=== PATIENT | female | born 1990 | race Caucasian/White ===

== ENCOUNTER 2020-09-08 11:59 | Emergency (ER) | payer OTHER ==
[~2020-09-08] VITALS: Ht 175.3 cm; Wt 29.5 kg
--- NOTE | 2020-09-08 12:10 | NUR ---
Patient came in to the er c/o r wrist and left knee pain s/p falling off her skateboard yesterday. On room air, breathing evenly and unlabored. Kept comfortable, will continue to monitor accordingly.
[2020-09-08] MEDS ORDERED: ACET-2605 PO (13:12)
[2020-09-08 14:13] VITALS: BP 122/66
--- NOTE | 2020-09-08 14:13 | NUR ---
Patient discharged to home in stable condition. Written and verbal after care instructions given. Patient verbalizes understanding of instruction.
== END 2020-09-08 14:13 | disposition home or self-care (01) ==
LOC: ER 12:04
DX: S80.02XA Contusion of left knee, initial encounter (principal); M25.531 Pain in right wrist; E10.9 Type 1 diabetes mellitus without complications; V00.131A Fall from skateboard, initial encounter; Y93.51 Activity, roller skating (inline) and skateboarding; Y92.89 Other specified places as the place of occurrence of the external cause; Y99.8 Other external cause status
CPT/HCPCS: 73110; 73564-TC

== ENCOUNTER 2025-01-26 10:23 | Emergency (ER) | payer OTHER ==
[~2025-01-26] VITALS: Ht 175.3 cm; Wt 77.1 kg
[~2025-01-26 10:23] MED LIST: ACET-2605 PO
[2025-01-26 10:31] VITALS: TEMP 97.6
[2025-01-26] MEDS ORDERED: ONDANSETRON HCL/PF 4 MG/2 ML VIAL ONE (10:59)
[2025-01-26] MEDS: ONDANSETRON HCL/PF 4 MG/2 ML VIAL IVP ONE (11:05)
[2025-01-26] MEDS: IV NS 0.9% 1,000 ML BAG IV ONE (11:05)
[2025-01-26 11:07] LABS: PLATELET COUNT (AUTO) 201 K/uL (150-450); RED BLOOD CELL COUNT(AUTO) 4.67 MIL/uL (4.0-5.2); RED CELL DISTRIBUTION WIDTH 13.6 % (11.5-15.0); WHITE BLOOD COUNT (AUTO) 7.8 K/uL (4.3-11.0)
[2025-01-26 11:16] LABS: CALCIUM, SERUM 8.8 mg/dL (8.5-10.1); CREATININE 0.8 mg/dL (0.6-1.3); SODIUM SERUM 136.0 mmol/L (136-145); UREA NITROGEN, BLOOD 10.0 mg/dL (7-18)
[2025-01-26] MEDS ORDERED: ONDA4TAB5 PO (12:15)
[2025-01-26 12:46] VITALS: BP 111/73; O2SAT 98
== END 2025-01-26 12:41 | disposition home or self-care (01) ==
LOC: ER 10:23
DX: O21.0 Mild hyperemesis gravidarum (principal); O24.011 Pre-existing type 1 diabetes mellitus, in pregnancy, first trimester; M79.7 Fibromyalgia; F41.9 Anxiety disorder, unspecified; R10.20 Pelvic and perineal pain unspecified side; Z79.4 Long term (current) use of insulin; Z3A.01 Less than 8 weeks gestation of pregnancy
CPT/HCPCS: 99285; 96374; 76856; 96361; 85025; 80048; 36415; 84702; J2405; J7030